=== PATIENT | female | born 1930 | race Caucasian/White ===

== ENCOUNTER 2019-02-19 05:57 | Day surgery (SDC) | payer MEDICARE, OTHER ==
[2019-02-19] VITALS (11 sets, daily range): BP systolic 141–157; BP diastolic 59–69
[~2019-02-19] VITALS: Ht 142.2 cm; Wt 53.1 kg
[2019-02-19] MEDS ORDERED: CRESTOR10 M2 ORAL (06:48)
[2019-02-19] MEDS ORDERED: INDERAL LA60 MG ORAL (06:48)
[2019-02-19] MEDS ORDERED: GABAPENTIN300 MG ORAL (06:48)
[2019-02-19] MEDS ORDERED: FOLIC ACID1 MG ORAL (06:48)
[2019-02-19] MEDS ORDERED: VASCEPA1 GM PO (06:48)
[2019-02-19] MEDS ORDERED: FEROSUL325 M1 PO (06:48)
[2019-02-19] MEDS ORDERED: NEXIUM40 MG ORAL (06:48)
[2019-02-19] MEDS ORDERED: EDARBI80 MG ORAL (06:48)
[2019-02-19] MEDS ORDERED: ZETIA10 MG ORAL (06:48)
[2019-02-19] MEDS ORDERED: ASPIRIN81 MG ORAL (06:48)
[2019-02-19] MEDS ORDERED: CARBIDOPA-LEVO1 EA13 PO (06:48)
[2019-02-19] MEDS ORDERED: ZANTAC150 MG ORAL (06:48)
[2019-02-19] MEDS ORDERED: CAPTOPRIL25 M1 PO (06:48)
[2019-02-19] MEDS ORDERED: AMLODIPINE BESYL5 MG ORAL (06:48)
[2019-02-19] MEDS ORDERED: DONEPEZIL HCL10 M2 ORAL (06:48)
[2019-02-19] MEDS ORDERED: HYDRALAZINE HCL50 MG ORAL (06:48)
--- NOTE | 2019-02-19 07:17 | Anethesia Preoperative Eval ---
Anesthesia Pre-op PMH/ROS General Date of Evaluation: Feb 19, 2019 Anesthesiologist: Francisco ASA Score: ASA 2 Mallampati Score Class I : Soft palate, uvula, fauces, pillars visible Class II: Soft palate, uvula, fauces visible Class III: Soft palate, base of uvula visible Class IV: Only hard plate visible Mallampati Classification: Class II Surgeon: Yeimi Diagnosis: Left 5th hammertoe Surgical Procedure: correction left 5th hammertoe Anesthesia History: none Family History: no anesthesia problems Allergies: Coded Allergies: No Known Allergies (Unverified , 02/18/19) Medications: see eMAR Patient NPO?: Yes NPO Date: Feb 18, 2019 NPO Time: 22:00 Past Medical History Cardiovascular: Reports: HTN, other - HLD; Denies: CAD, HI, valve dz, arrhythmia Pulmonary: Denies: asthma, COPD, JG, other Gastrointestinal/Genitourinary: Denies: GERD, CRI, ESRD, other Neurologic/Psychiatric: Denies: dementia, CVA, depression/anxiety, TIA, other Endocrine: Reports: DM; Denies: hypothyroidism, steroids, other HEENT: Denies: cataract (L), cataract (R), glaucoma, [place] (L), [place] (R), other Hematology/Immune: Denies: anemia, DVT, bleeding disorder, other Musculoskeletal/Integumentary: Denies: OA, RA, DJD, DDD, edema, other PSxH Narrative: right foot sx Anesthesia Pre-op Phys. Exam Physician Exam Last Vital Signs Date Time Temp Pulse Resp B/P (MAP) Pulse Ox O2 Delivery O2 Flow Rate FiO2 02/19/19 06:36 Room Air 02/19/19 06:29 97.1 62 18 151/67 95 Constitutional: NAD Cardiovascular: RRR Respiratory: CTA Airway Exam Mallampati Score: Class II MO: full ROM: full Teeth: intact Anesthesia Pre-op A/P Labs see chart Studies Pre-op Studies: EKG - sr Risk Assessment & Plan Assessment: ASA II Plan: MAC Status Change Before Surgery: No Pre-Antibiotics Drug: Ancef 1g Given Within 1 Hr of Incision: Yes Ela Constantino MD Feb 19, 2019 07:17
[2019-02-19] MEDS ORDERED: LR 1000ml 1,000 ML IVLG SCH (07:29)
[2019-02-19] MEDS ORDERED: Propofol 200mg/20ml IV ONE ×2 (07:30→07:32)
[2019-02-19] MEDS ORDERED: DiphenhydrAMINE 50mg/ml Inj IVP PRN (07:30)
[2019-02-19] MEDS ORDERED: Sterile Water Irrig 1000ml IRRIG ONE (07:30)
[2019-02-19] MEDS ORDERED: fentaNYL 100 mcg/2 mL IV PRN (07:30)
[2019-02-19] MEDS ORDERED: Hydromorphone 0.5mg/0.5ml inj IVP PRN (07:30)
[2019-02-19] MEDS ORDERED: NS Irrig 1000ml ONE (07:30)
[2019-02-19] MEDS ORDERED: LR 1000ml ONE (07:30)
[2019-02-19] MEDS ORDERED: Ketorolac 30mg Inj IV PRN (07:30)
[2019-02-19] MEDS ORDERED: Lidocaine 1% MPF 10mg/ml 5ml ONE (07:32)
[2019-02-19] MEDS ORDERED: Dexamethasone 4mg/ml vial ONE (07:36)
[2019-02-19] MEDS ORDERED: Bupivacaine 0.5% Inj 30 ml vial INJ ONE ×2 (07:36→08:39)
--- NOTE | 2019-02-19 07:36 | Pre-Procedure Note/Attestation ---
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 I attest that, if there was a reasonable possibility of needing a blood transfusion, the patient (or the patient's legal business banking representative) was given the [facility] standardized written summary, pursuant to the [place] Blood Safety Act ([place] Health and Safety Code # 1645, as amended). I attest that I re-evaluated the patient just prior to the surgery and that there has been no change in the patient's H&P, except as documented below: Fahad Jalloh DPM Feb 19, 2019 07:36
[2019-02-19] MEDS ORDERED: Lidocaine 1% Plain 30 ml INJ ONE (07:37)
[2019-02-19] MEDS ORDERED: Bupivacaine 0.25% Inj 30ml INJ ONE (07:45)
[2019-02-19] MEDS ORDERED: NS Irrig 1000ml IRRIG ONE (07:55)
[2019-02-19] MEDS ORDERED: Betadine 4oz Bottle TOPIC ONE (08:20)
--- NOTE | 2019-02-19 08:32 | Brief Operative Note ---
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
--- NOTE | 2019-02-19 08:35 | Immediate Post-Op Evaluation ---
Immediate Post-Op Evalulation Immediate Post-Op Evalulation Procedure: Left 5th hammertoe correction Date of Evaluation: Feb 19, 2019 Time of Evaluation: 08:37 IV Fluids: 300 Blood Products: 0 Estimated Blood Loss: min Urinary Output: 0 Blood Pressure Systolic: 157 Blood Pressure Diastolic: 70 Pulse Rate: 64 Respiratory Rate: 16 O2 Sat by Pulse Oximetry: 100 Temperature (Fahrenheit): 98.9 Pain Score (1-10): 0 Nausea: No Vomiting: No Complications 0 Patient Status: awake, reacts, patent, none Hydration Status: adequate Drug: Ancef 1g Given Within 1 Hr of Incision: Yes Ela Constantino MD Feb 19, 2019 08:35
--- NOTE | 2019-02-19 08:36 | 48 Hour Post Anesthesia Eval ---
Post Anesthesia Evaluation Procedure: Left 5th hammertoe correction Date of Evaluation: Feb 19, 2019 Airway: patent Nausea: No Vomiting: No Pain Intensity: 0 Hydration Status: adequate Cardiopulmonary Status: at baseline Mental Status/LOC: patient returned to baseline Post-Anesthesia Complications: 0 Follow-up care needed: ready to discharge Ela Constantino MD Feb 19, 2019 08:36
--- NOTE | 2019-02-19 11:45 | Diagnostic Imaging Report ---
Indication: Foot pain Comparison: None Findings: 3 views of the left foot were obtained. Resection of part of the head of the fifth proximal phalange and middle phalange noted. There is a cast or bandage material over the area. IMPRESSION: Postoperative confirmation
--- NOTE | 2019-02-19 19:15 | Operative Note - Dictated ---
DATE OF OPERATION: 02/19/2019 PREOPERATIVE DIAGNOSIS: Hammertoe deformity, fifth left digit. POSTOPERATIVE DIAGNOSES: 1. Hammertoe deformity, fifth left digit. 2. Painful exostosis. PROCEDURES PERFORMED: 1. Arthroplasty fifth left proximal interphalangeal joint. 2. Exostectomy fifth left, intermediate phalanx. SURGEON: Fahad Jalloh D.P.M. ANESTHESIOLOGIST: Dr. Cochran. ANESTHESIA: Local standby. DESCRIPTION OF THE OPERATION: The patient was brought to the operating room and was placed on the operating room table in the supine position. IV was administered by the anesthesiologist. Local anesthesia consisting of 0.25% Marcaine plain, total of 7 mL was administered to the left foot. An ankle tourniquet was applied to the left lower extremity. The foot was prepped and draped in the usual sterile manner. An Esmarch bandage was then utilized to exsanguinate the blood and the left ankle tourniquet was inflated to 250 mmHg. Attention was directed to the fifth left digit where an approximately 4 cm dorsal linear skin incision was performed. The incision was deepened utilizing sharp and blunt dissection with care being taken to cauterize and ligate all bleeders. At the level of the proximal interphalangeal joint, a transverse tenotomy was performed and the extensor tendon was reflected proximally. The head of the proximal phalanx was exposed. At this point, utilizing a 67-blade, the head was detached from multiple bony bridges and arthritic bone from the intermediate phalanx. The collateral ligaments were severed and the head of the proximal phalanx was exposed in total. Utilizing a sagittal saw, the head of the proximal phalanx was resected in total. The remaining bone was rasped smooth. The wound was copiously flushed utilizing sterile saline. Attention was then directed to the multiple osteophytic bone that was present over the lateral aspect of the intermediate phalanx. Utilizing a bone cutter, the lateral aspect of the intermediate phalanx was resected in total. The bone was rasped smooth. The wound was copiously flushed utilizing sterile saline. At this point, the extensor tendon was reapproximated utilizing 4-0 Vicryl in a simple interrupted type stitch. The skin was then reapproximated utilizing 5-0 nylon in simple interrupted type stitch. The wound was dressed utilizing an Adaptic 4 x 4, and 3-inch Sherie. The left ankle tourniquet was deflated and vascular supply was noted to all digits of left foot. Fahad Jalloh D.P.M. DR: Catherine JOB#: [id number] CC:
--- NOTE | 2019-02-19 19:30 | History and Physical Report ---
DATE OF ADMISSION: 02/19/2019 PODIATRIC HISTORY AND PHYSICAL HISTORY OF PRESENT ILLNESS: This is an 88-year-old white female that is admitted today for an outpatient surgery of her left foot. The patient has been under my care for many years. She had developed fifth left digit pain during the past 6 months following an injury to her toe. The patient was treated conservatively with padding, injections, and shoe-gear modifications without success and the patient was consulted on surgical correction. PAST MEDICAL HISTORY: Remarkable for hypertension, congestive heart failure, osteoarthritis, spinal disc disease, gastroesophageal reflux, type 2 diabetes, and anemia. MEDICATIONS: Amlodipine, aspirin, captopril, Sinemet, clonazepam, Restasis, Aricept, Lexapro, Nexium, Zetia, ferrous sulfate, gabapentin, hydralazine, Janumet, and propranolol. ALLERGIES: No known drug allergies. PODIATRIC PHYSICAL EXAMINATION: VASCULAR STATUS: Dorsalis pedis and posterior tibial arteries are faintly palpable measuring 1/4 bilaterally. Capillary filling time is less than 5 seconds to all digits bilaterally. Homans sign is negative. Mild varicosities of bilateral lower extremities are noted. NEUROLOGICAL: Reveals intact reflexes. Achilles and patellar measuring 1/4 bilaterally. Sensation, proprioception, and vibration are all intact of bilateral lower extremity. Babinski is negative. Clonus is absent of the bilateral lower extremity. MUSCULOSKELETAL: Reveals nonreducible hammertoe deformity of the fifth left digit. There are reduced range of motions to all the foot and ankle joints with some crepitations noted bilaterally. Mild bunion deformities are noted bilaterally. DERMATOLOGICAL: Reveals dystrophic nails bilaterally. The skin is cool to the touch. [place] is present over the dorsal lateral aspect of the fifth left digit. ASSESSMENT: 1. Hammertoe deformity, fifth left digit. 2. Osteoarthritis. 3. Diabetes type 2. PLAN: The patient is admitted today for an outpatient correction of her fifth left hammertoe deformity. Risks, complications, and alternative of treatments were discussed with the patient. Postoperative medications were dispensed to the patient. Postoperative instructions were given and the patient elected to proceed with surgery. Fahad Jalloh D.P.M. DR: ALTON JOB#: [id number] CC:
== END 2019-02-20 10:15 | disposition home or self-care (01) ==
LOC: SUR 05:57
DX: M20.42 Other hammer toe(s) (acquired), left foot (principal); M89.9 Disorder of bone, unspecified; I11.0 Hypertensive heart disease with heart failure; I50.9 Heart failure, unspecified; M19.90 Unspecified osteoarthritis, unspecified site; K21.9 Gastro-esophageal reflux disease without esophagitis; E11.9 Type 2 diabetes mellitus without complications; Z79.82 Long term (current) use of aspirin; Z79.899 Other long term (current) drug therapy; E78.5 Hyperlipidemia, unspecified; I10 Essential (primary) hypertension
CPT/HCPCS: 28045; 28285; 73630; 82962; J0690; J1100; J1200; J2704; J3010; J3490; 94003; 94150; A4246